=== PATIENT | female | born 1955 | race Caucasian/White ===

== ENCOUNTER 2023-04-24 21:47 | Emergency (ER) | payer OTHER ==
[2023-04-24] MEDS ORDERED: KETOROLAC 30 MG/ML INJ ONE (22:34)
[2023-04-24] MEDS ORDERED: MORPHINE 4 MG/ML SYR ONE (22:34)
--- NOTE | 2023-04-24 22:34 | RAD REPORT ---
EXAM DESCRIPTION: Donna Single View04/24/2023 10:27 pm CLINICAL HISTORY: R shoulder pain COMPARISON: No comparisons TECHNIQUE: Portable AP view of the chest. FINDINGS: Right perihilar/ infrahilar airspace opacification. Left lung is clear, although evaluatio n is somewhat limited by underpenetration. No pneumothorax or effusion. The cardiomediastinal contour s are unremarkable. Incidentally noted proximal right humerus fracture IMPRESSION: Right perihilar/infrahilar airspace opacification, could reflect aspiration or early air space disease. Incidentally noted proximal right humerus fracture.
--- NOTE | 2023-04-24 22:35 | RAD REPORT ---
EXAM DESCRIPTION: Shoulder Right 2 View - 04/24/2023 10:27 pm CLINICAL HISTORY: acute fall , pain COMPARISON: No comparisons TECHNIQUE: Internal and external rotation views of the right shoulder were obtained. FINDINGS: Proximal right humerus fracture at the surgical neck, with abduction of the head, and medi al translation of the distal fragment. Some posterolateral translation of a fragment of the greater t uberosity is also noted. Moderate AC joint degenerative changes. Pronounced soft tissue swelling abou t the right shoulder. IMPRESSION: Comminuted displaced proximal right humerus fracture as above.
--- NOTE | 2023-04-24 22:36 | RAD REPORT ---
EXAM DESCRIPTION: RAD - Humerus Right - 04/24/2023 10:27 pm CLINICAL HISTORY: fall , right shoulder pain COMPARISON: No comparisons TECHNIQUE: Right humerus, 3 views. FINDINGS: Proximal right humerus fracture better evaluated on the shoulder radiographs performed con comitantly. Adjacent soft tissue swelling. No foreign body or other soft tissue abnormality. IMPRESSION: Proximal right humerus fracture.
[2023-04-24 22:44] LABS: Absolute Lymphocytes (CBC) 1.1 K/uL (0.7-4.9); Hematocrit 39.7 % (36.0-45.0); Lymphocytes % 9.9 % (15.3-44.8); MCV 95.4 fL (80-100); MPV 7.8 fL (7.6-11.3); Platelets 182 thou/uL (152-406); RBC Red Blood Cell Count 4.16 M/uL (3.86-4.86)
[2023-04-24 22:54] LABS: Potassium 3.2 mEq/L (3.5-5.1)
[2023-04-24] MEDS ORDERED: ONDANSETRON 4 MG/2 ML VIAL ONE (22:57)
--- NOTE | 2023-04-24 23:48 | EDPHYS ---
Physician Documentation [facility] Name: Alicia Larson Age: 67 yrs Sex: Female : 1955 Arrival Date: 04/24/2023 Time: 21:47 Bed 6 Private MD: ED Physician Inocente Locke HPI: 04/24 21:51 This 67 yrs old Female presents to ER via Unassigned with complaints of Fall sp4 with a right shoulder injury. 23:59 This is a very pleasant 67-year-old female who presents with acute fall in her yard to sp4 the right arm.. Patient developed moderate to severe pain and tenderness of the right shoulder. Patient denied any other injury. Patient has past medical history of hypertension, rheumatoid arthritis, osteoarthritis.. Historical: - Allergies: 22:04 No Known Allergies; lg3 - Home Meds: 22:04 aspirin 81 mg Oral capsule daily [Active]; CBD OIL [Active]; CBD GUMMIES [Active]; HEMP lg3 [Active]; - PMHx: 22:04 HTN; Rheumatoid arthritis; Osteoarthritis; lg3 - PSHx: 22:04 left knee; lg3 - Immunization history:: Adult Immunizations not immunized, Client reports having NOT received the Covid vaccine. Flu vaccine is not up to date. - Social history:: Smoking status: Patient reports the use of cigarette tobacco products, smokes one pack cigarettes per day. Patient uses alcohol, occasionally. - Family history:: not pertinent. ROS: 23:59 Constitutional: Negative for fever, chills, and weight loss, MS/Extremity: Positive sp4 right proximal shoulder tenderness, injury, deformity 23:59 All other systems are negative. Exam: 23:59 Constitutional: This is a well developed, well nourished patient who is awake, alert, sp4 and in no acute distress. Head/Face: Normocephalic, atraumatic. Eyes: Pupils equal round and reactive to light, extra-ocular motions intact. Lids and lashes normal. Conjunctiva and sclera are not injected. Cornea within normal limits. Periorbital areas with no swelling, redness, or edema. ENT: Nares patent. No nasal discharge, no septal abnormalities noted. Tympanic membranes are normal and external auditory canals are clear. Oropharynx with no redness, swelling, or masses, exudates, or evidence of obstruction, uvula midline. Mucous membranes moist. Neck: Trachea midline, no thyromegaly or masses palpated, and no cervical lymphadenopathy. Supple, full range of motion without nuchal rigidity, or vertebral point tenderness. Chest/axilla: Normal chest wall appearance and motion. Nontender with no deformity. No lesions are appreciated. Cardiovascular: Regular rate and rhythm with a normal S1 and S2. No gallops, murmurs, or rubs. Normal PMI, no JVD. No pulse deficits. Respiratory: Lungs have equal breath sounds bilaterally, clear to auscultation and percussion. No rales, rhonchi or wheezes noted. No increased work of breathing, no retractions or nasal flaring. Abdomen/GI: Soft, non-tender, with normal bowel sounds. No distension or tympany. No guarding or rebound. No evidence of tenderness throughout. Back: No spinal tenderness. No costovertebral tenderness. Skin: Warm, dry with normal turgor. Normal color with no rashes, no lesions, and no evidence of cellulitis. MS/ Extremity: Pulses equal, no cyanosis. Neurovascular intact. Positive right proximal shoulder deformity, moderate to severe tenderness, impeded range of motion in the right arm, intact peripheral pulses, intact right hand strength. Neuro: Awake and alert, GCS 15, oriented to person, place, time, and situation. Cranial nerves II-XII grossly intact. Motor strength 5/5 in all extremities. Sensory grossly intact. Psych: Awake, alert, with orientation to person, place and time. Behavior, mood, and affect are within normal limits Vital Signs: 22:03 BP 173 / 68; Pulse 79; Resp 17 S; Temp 97.8(O); Pulse Ox 100% on R/A; Weight 118.84 kg lg3 (R); Height 5 ft. 8 in. (R); Pain 9/10; 23:11 BP 150 / 62; Pulse 71; Resp 16 S; Pulse Ox 100% on R/A; lg3 22:03 Body Mass Index 39.84 (118.84 kg, 172.72 cm) lg3 22:03 Pain Scale: Adult lg3 Procedures: 04/25 00:05 Splinting: Splint applied to anterior aspect of right shoulder using Right shoulder sp4 immobilizer. applied by myself. Examined by me, post splint application: neurovascular intact, 2+ distal pulses palpable, brisk capillary refill noted, Patient tolerated well, Advised to keep immobilizer on at all times.. MDM: 04/24 21:53 Patient medically screened. sp4 23:59 Differential diagnosis: abrasion, contusion, fracture, laceration, multiple trauma, sp4 sprain, strain. Data reviewed: vital signs, nurses notes, EMS record, lab test result(s), CBC, electrolytes, hepatic panel, radiologic studies, plain films. Consideration of Admission/Observation Escalation of care including admission/observation considered. ED course: X-rays revealed proximal right humerus fracture at the surgical neck and medial translation of the distal fragment. Which amounts to comminuted displaced proximal right humerus fracture. Chest x-ray revealed a right perihilar infrahilar opacification which could reflect aspiration. In proximal right humerus fracture. . ED course: Right shoulder sling with immobilizer was applied.. Fracture is non -op at this time. Will refer to local orthopedist Dr. Talavera for evaluation. Patient was provided pain medications as needed.. 04/24 21:52 Order name: Basic Metabolic Panel; Complete Time: 23:25 sp4 04/24 21:52 Order name: CBC with Diff; Complete Time: 23:25 sp4 04/24 22:39 Order name: Glucose, Ancillary Testing; Complete Time: 23:25 EDMS 04/24 21:52 Order name: Chest Single View XRAY; Complete Time: 23:25 sp4 04/24 21:53 Order name: Shoulder Right (2 View) XRAY; Complete Time: 23:25 sp4 04/24 21:53 Order name: Humerus Right XRAY; Complete Time: 23:25 sp4 04/24 21:52 Order name: IV Saline Lock; Complete Time: 22:15 sp4 04/24 21:52 Order name: Labs collected and sent; Complete Time: 22:15 sp4 04/24 21:52 Order name: Accucheck Blood Glucose; Complete Time: 22:40 sp4 Administered Medications: 22:50 Drug: morphine IVP or IV 4 mg Route: IVP; Infused Over: 4 mins; Site: left hand; vc1 23:10 Follow up: Response: No adverse reaction; Marked relief of symptoms lg3 22:50 Drug: Ketorolac IVP 30 mg Route: IVP; Site: left hand; vc1 23:10 Follow up: Response: No adverse reaction; Marked relief of symptoms lg3 22:50 Drug: Ondansetron IVP 8 mg Route: IVP; Site: left hand; vc1 23:10 Follow up: Response: No adverse reaction lg3 23:47 Drug: [place] PO 10 mg-325 mg 1 tabs Route: PO; lg3 23:47 Drug: Methocarbamol PO 750 mg Route: PO; lg3 23:47 Drug: Promethazine PO 25 mg Route: PO; lg3 Disposition Summary: 04/24/23 23:47 Discharge Ordered Location: Home sp4 Problem: new sp4 Symptoms: have improved sp4 Condition: Stable sp4 Diagnosis - Fracture of upper end of humerus sp4 - Right humerus closed proximal fracture, comminuted and displaced surgical neck of sp4 the Right humerus fracture Followup: sp4 - With: Nghia Talavera MD - When: 1 - 2 days - Reason: Recheck today's complaints Followup: sp4 - With: Luis Alberto Gan MD - When: 5 - 6 days - Reason: Recheck today's complaints Discharge Instructions: - Discharge Summary Sheet sp4 - Humerus Fracture Treated With Immobilization, [id number] sp4 Forms: - Patient Portal Instructions sp4 - Leadership Thank You Letter sp4 Prescriptions: - methocarbamol 750 mg Oral tablet - take 1 tablet by ORAL route every 6 hours PRN pain; 60 tablet; Refills: 0, sp4 Product Selection Permitted - Ibuprofen 600 mg Oral Tablet - take 1 tablet by ORAL route every 6 hours As needed take with food; 30 tablet; sp4 Refills: 0, Product Selection Permitted - Tramadol 50 mg Oral Tablet - take 1 tablet by ORAL route every 6 hours as needed; 20 tablet; Refills: 0, sp4 Product Selection Permitted - promethazine 25 mg Oral Tablet - take 1 tablet by ORAL route every 6 hours As needed PRN nausea; 30 tablet; sp4 Refills: 0, Product Selection Permitted Signatures: Dispatcher [employer] Davida Coto RN RN lg3 Carlotta Cohen RN RN vc1 Inocente Locke MD MD sp4
--- NOTE | 2023-04-24 23:48 | ER ---
Nurse's Notes [facility] Name: Alicia Larson Age: 67 yrs Sex: Female : 1955 Arrival Date: 04/24/2023 Time: 21:47 Bed 6 Private MD: Diagnosis: Fracture of upper end of humerus;Right humerus closed proximal fracture, comminuted and displaced surgical neck of the Right humerus fracture Presentation: 04/24 22:03 Chief complaint: Patient states: tripped over side walk. fell from standing position. lg3 complaints of pain in right shoulder. Coronavirus screen: Client denies travel out of the [place] in the last 14 days. At this time, the client does not indicate any symptoms associated with coronavirus-19. Ebola Screen: No symptoms or risks identified at this time. Initial Sepsis Screen: Does the patient meet any 2 criteria? No. Patient's initial sepsis screen is negative. Does the patient have a suspected source of infection? No. Patient's initial sepsis screen is negative. Risk Assessment: Do you want to hurt yourself or someone else? Patient reports no desire to harm self or others. Onset of symptoms was April 24, 2023. 22:03 Method Of Arrival: EMS: [facility] lg3 22:03 Acuity: ADELINA 3 lg3 Triage Assessment: 22:04 General: Appears in no apparent distress. uncomfortable, Behavior is calm, cooperative. lg3 Pain: Complains of pain in right shoulder. EENT: No deficits noted. No signs and/or symptoms were reported regarding the EENT system. Neuro: No deficits noted. Jeter Agitation-Sedation Scale (RASS): 0 - Alert and Calm Level of Consciousness is awake, alert, obeys commands, Oriented to person, place, time, situation. Cardiovascular: No deficits noted. Denies chest pain, shortness of breath, Capillary refill < 3 seconds Clubbing of nail beds is absent JVD is absent Patient's skin is warm and dry. Respiratory: No deficits noted. Airway is patent Respiratory effort is even, unlabored, Respiratory pattern is regular, symmetrical. GI: No deficits noted. No signs and/or symptoms were reported involving the gastrointestinal system. Abdomen is round non-distended. : No deficits noted. No signs and/or symptoms were reported regarding the genitourinary system. Derm: No deficits noted. No signs and/or symptoms reported regarding the dermatologic system. Skin is intact, is healthy with good turgor, Skin is dry, Skin is normal, Skin temperature is warm. Musculoskeletal: Reports pain in right shoulder. Historical: - Allergies: 22:04 No Known Allergies; lg3 - Home Meds: 22:04 aspirin 81 mg Oral capsule daily [Active]; CBD OIL [Active]; CBD GUMMIES [Active]; HEMP lg3 [Active]; - PMHx: 22:04 HTN; Rheumatoid arthritis; Osteoarthritis; lg3 - PSHx: 22:04 left knee; lg3 - Immunization history:: Adult Immunizations not immunized, Client reports having NOT received the Covid vaccine. Flu vaccine is not up to date. - Social history:: Smoking status: Patient reports the use of cigarette tobacco products, smokes one pack cigarettes per day. Patient uses alcohol, occasionally. - Family history:: not pertinent. Screenin:13 [facility] ED Fall Risk Assessment (Adult) History of falling in the last 3 months, lg3 including since admission Yes- single mechanical fall (1 pt) Confusion or Disorientation No (0 pts) Intoxicated or Sedated No (0 pts) Impaired Gait No (0 pts) Mobility Assist Device Used No (0 pt) Altered Elimination No (0 pt) Score/Fall Risk Level 0 - 2 = Low Risk Oriented to surroundings, Maintained a safe environment, Educated pt \T\ family on fall prevention, incl call for assistance when getting out of bed. Abuse screen: Denies threats or abuse. Denies injuries from another. Nutritional screening: No deficits noted. Tuberculosis screening: No symptoms or risk factors identified. Assessment: 22:12 General: see triage assessment . lg3 23:45 Reassessment: Patient and/or family updated on plan of care and expected duration. Pain vc1 level reassessed. Patient is alert, oriented x 3, equal unlabored respirations, skin warm/dry/pink. Patient states feeling better. Patient states symptoms have improved. Vital Signs: 22:03 BP 173 / 68; Pulse 79; Resp 17 S; Temp 97.8(O); Pulse Ox 100% on R/A; Weight 118.84 kg lg3 (R); Height 5 ft. 8 in. (R); Pain 9/10; 23:11 BP 150 / 62; Pulse 71; Resp 16 S; Pulse Ox 100% on R/A; lg3 22:03 Body Mass Index 39.84 (118.84 kg, 172.72 cm) lg3 22:03 Pain Scale: Adult lg3 ED Course: 21:49 Patient arrived in ED. rv1 21:51 Inocente Locke MD is Attending Physician. sp4 22:04 Triage completed. lg3 22:04 Arm band placed on left wrist. lg3 22:13 Patient has correct armband on for positive identification. Placed in gown. Bed in low lg3 position. Call light in reach. Side rails up X 1. Client placed on continuous cardiac and pulse oximetry monitoring. NIBP monitoring applied. managing broker on. Door closed. Noise minimized. Warm blanket given. Family accompanied patient. 22:13 Patient maintains SpO2 saturation greater than 95% on room air. lg3 22:15 Carlotta Cohen, RN is Primary Nurse. vc1 22:15 Inserted saline lock: 20 gauge in left hand, using aseptic technique. vc1 22:16 Basic Metabolic Panel Sent. vc1 22:16 CBC with Diff Sent. vc1 22:29 Chest Single View XRAY In Process Unspecified. EDMS 22:29 Shoulder Right (2 View) XRAY In Process Unspecified. EDMS 22:29 Humerus Right XRAY In Process Unspecified. EDMS 23:45 Nghia Talavera MD is Referral Physician. sp4 23:45 Luis Alberto Gan MD is Referral Physician. sp4 04/25 00:09 No provider procedures requiring assistance completed. IV discontinued, intact, vc1 bleeding controlled, No redness/swelling at site. Pressure dressing applied. 00:10 Provided Education on: follow up with ortho, sling use. vc1 Administered Medications: 04/24 22:50 Drug: morphine IVP or IV 4 mg Route: IVP; Infused Over: 4 mins; Site: left hand; vc1 23:10 Follow up: Response: No adverse reaction; Marked relief of symptoms lg3 22:50 Drug: Ketorolac IVP 30 mg Route: IVP; Site: left hand; vc1 23:10 Follow up: Response: No adverse reaction; Marked relief of symptoms lg3 22:50 Drug: Ondansetron IVP 8 mg Route: IVP; Site: left hand; vc1 23:10 Follow up: Response: No adverse reaction lg3 23:47 Drug: [place] PO 10 mg-325 mg 1 tabs Route: PO; lg3 23:47 Drug: Methocarbamol PO 750 mg Route: PO; lg3 23:47 Drug: Promethazine PO 25 mg Route: PO; lg3 Medication: 04/25 00:08 VIS not applicable for this client. vc1 Outcome: 04/24 23:47 Discharge ordered by . sp4 04/25 00:10 Discharged to home ambulatory, with family. vc1 Condition: good Discharge instructions given to patient, Instructed on discharge instructions, follow up and referral plans. medication usage, Demonstrated understanding of instructions, follow-up care, medications, Prescriptions given X 4. 00:12 Patient left the ED. vc1 Signatures: Dispatcher [employer] Davida Coto, RN RN lg3 Carlotta Cohen RN RN vc1 Kiya Severino rv1 Inocente Locke MD MD sp4
[2023-04-24] MEDS ORDERED: methocarbamoL 750 MG TAB ONE (23:54)
[2023-04-24] MEDS ORDERED: PROMETHAZINE 25 MG TABLET ONE (23:54)
[2023-04-24] MEDS ORDERED: HYDROCODONE/APAP 10/325 TAB ONE (23:55)
[2023-04-25 01:18] VITALS: TEMP 97.8; O2SAT 100
[2023-04-25 01:20] VITALS: BP 150/62
== END 2023-04-25 00:12 | disposition home or self-care (01) ==
LOC: ER 21:47
DX: S42.211A Unspecified displaced fracture of surgical neck of right humerus, initial encounter for closed fracture (principal); I10 Essential (primary) hypertension; F17.210 Nicotine dependence, cigarettes, uncomplicated; Z79.82 Long term (current) use of aspirin
CPT/HCPCS: 85025; 80048; 36415; 82947; 71045; 73060; 73030; 96375; 96374; 99285; Q0169; J2405